=== PATIENT | female | born 1995 | race Caucasian/White ===

== ENCOUNTER → 2021-10-05 14:20 | Observation (INO) | END | disposition home or self-care (01) | LOC: 1NENULAB | PROVIDERS: ADMIT Registered Nurse; ATTEND Registered Nurse ==

== ENCOUNTER 2021-12-22 08:13 | Inpatient (IN) ==
[2021-12-22] MEDS ORDERED: Azithromycin 500 MG in 0.9 % Sodium Chloride 250 ML IVPB PRN (08:19)
[2021-12-22] MEDS ORDERED: Ondansetron 4 MG/2 ML VIAL IVP PRN ×2 (08:19→11:54)
[2021-12-22] MEDS ORDERED: Metoclopramide 10 MG/2 ML VIAL IVP PRN (08:19)
[2021-12-22] MEDS ORDERED: Naloxone 0.4 MG/ML INJ IVP PRN ×2 (08:19→11:54)
[2021-12-22] MEDS ORDERED: Famotidine 20 MG/2 ML VIAL IVP PRN (08:19)
[2021-12-22 09:15] LABS: Basophils # 0.1 K/mcL (0.0-0.2); Basophils % 0.4 %; Eosinophils # 0.1 K/mcL (0.0-0.6); Eosinophils % 0.6 %; Hematocrit 30.8 % (35.3-44.9); Hemoglobin 9.7 g/dL (11.5-15.4); Lymphocytes # 1.5 K/mcL (0.6-4.6); Lymphocytes % 9.9 %; Mean Corpuscular HGB Conc 31.5 g/dL (31.6-35.5); Mean Corpuscular Hemoglobin 24.8 pg (28.0-33.3); Mean Corpuscular Volume 78.8 fL (83.0-100.0); Mean Platelet Volume 11.6 fL (9.4-12.4); Monocytes # 0.8 K/mcL (0.0-1.3); Monocytes % 5.2 %; Neutrophils # 12.6 K/mcL (1.6-8.9); Nucleated Red Blood Cells 0.2 /100 WBC (0); Platelet Count 193 K/mcL (140-400); Red Blood Count 3.91 M/mcL (3.82-4.97); Red Cell Distribution Width 14.6 % (11.5-14.5); Segmented Neutrophils % 81.9 %; White Blood Count 15.3 K/mcL (4.3-11.1)
[2021-12-22] MEDS: Ringers Solution, Lactated 1,000 ML IVC SCH ×3 (09:48→19:07)
[2021-12-22] MEDS: Oxytocin 30 UNIT/503 ML BAG IVC SCH ×2 (09:50→23:34)
[2021-12-22 10:09] LABS: Amphetamine Screen,Urine Negative ng/mL (Cutoff=1000); Barbiturate Screen,Urine Negative ng/mL (Cutoff=200); Benzodiazepines Screen,Urine Negative ng/mL (Cutoff=200); Cannabinoid Screen,Urine Negative ng/mL (Cutoff = 50); Cocaine Screen,Urine Negative ng/mL (Cutoff= 300); Opiate Screen,Urine Negative ng/mL (Cutoff=300); Phencyclidine Screen,Urine Negative ng/mL (Cutoff=25)
[2021-12-22] MEDS ORDERED: EPHEDrine 50 MG/ML VIAL IVP PRN (11:54)
[2021-12-22] MEDS ORDERED: *HR* FentaNYL (PF) 100 MCG/2 ML VIAL EP ONE (11:54)
[2021-12-22] MEDS ORDERED: Ropivacaine/PF 0.2% 20 ML VIAL EP ONE (11:54)
[2021-12-22] MEDS ORDERED: Ropivacaine/PF 0.2% 20 ML VIAL ONE ×2 (14:04→21:32)
[2021-12-22] MEDS: Epidural Premix (fent/bupiv) 110 ML EP SCH ×2 (14:40→21:35)
[2021-12-23] MEDS ORDERED: Gentamicin 320 MG in 0.9 % Sodium Chloride 100 ML IVPB ONE (01:13)
[2021-12-23] MEDS ORDERED: Acetaminophen 325 MG TABLET PO ONE (01:22)
[2021-12-23] MEDS ORDERED: Ampicillin 2,000 MG in 0.9 % Sodium Chloride Mini Bag 100 ML IVPB SCH (02:00)
[2021-12-23] MEDS ORDERED: Benzocaine/Menthol 56 GM AEROSOL SPRAY TP PRN (05:33)
[2021-12-23] MEDS ORDERED: Oxytocin 30 UNIT/503 ML BAG IVC SCH (05:33)
[2021-12-23] MEDS ORDERED: Lanolin 7 G OINT...G. TP PRN (05:33)
[2021-12-23] MEDS ORDERED: Ondansetron ODT 4 MG TAB.RAPDIS SL PRN (05:33)
[2021-12-23] MEDS: Acetaminophen 325 MG TABLET PO SCH ×3 (06:43→19:01)
[2021-12-23] MEDS: Ibuprofen 600 MG TABLET PO SCH ×3 (06:43→19:01)
[2021-12-23] MEDS: Prenatal Vit/FA 1 EACH TABLET PO SCH (08:16)
[2021-12-23] MEDS ORDERED: Methylergonovine 0.2 MG/ML AMPUL IM ONE (17:03)
[2021-12-23 20:21] VITALS: O2SAT 97
[2021-12-24 03:57] LABS: Basophils # 0.1 K/mcL (0.0-0.2); Basophils % 0.4 %; Eosinophils # 0.2 K/mcL (0.0-0.6); Hematocrit 26.6 % (35.3-44.9); Hemoglobin 8.3 g/dL (11.5-15.4); Immature Granulocytes % 1.6 % (0-4); Lymphocytes % 9.2 %; Mean Corpuscular HGB Conc 31.2 g/dL (31.6-35.5); Mean Corpuscular Hemoglobin 24.8 pg (28.0-33.3); Mean Corpuscular Volume 79.4 fL (83.0-100.0); Mean Platelet Volume 10.6 fL (9.4-12.4); Monocytes # 1.2 K/mcL (0.0-1.3); Monocytes % 5.4 %; Neutrophils # 18.3 K/mcL (1.6-8.9); Nucleated Red Blood Cells 0.1 /100 WBC (0); Platelet Count 155 K/mcL (140-400); Red Blood Count 3.35 M/mcL (3.82-4.97); Red Cell Distribution Width 14.5 % (11.5-14.5); Segmented Neutrophils % 82.4 %; White Blood Count 22.3 K/mcL (4.3-11.1)
[2021-12-24] MEDS: Acetaminophen 325 MG TABLET PO SCH ×3 (04:32→14:23)
[2021-12-24] MEDS: Ibuprofen 600 MG TABLET PO SCH ×2 (04:32→14:23)
[2021-12-24 07:22] VITALS: BP 106/76; PULSE 87; TEMP 97.8
[2021-12-24] MEDS: Prenatal Vit/FA 1 EACH TABLET PO SCH (09:15)
== END 2021-12-24 14:51 | disposition home or self-care (01) | DRG 560 ==
LOC: 1NENULAB → 1NENUOBS 12-23 05:38
PROVIDERS: ADMIT Obstetrics & Gynecology; ATTEND Obstetrics & Gynecology